=== PATIENT | male | born 1940 | race Caucasian/White ===

== ENCOUNTER 2016-10-04 09:15 | Inpatient (IN) ==
--- NOTE | 2016-09-29 12:56 | XRay Report ---
XR chest 2V Indication: Preop evaluation Comparison: None Technique: Frontal and lateral views of the chest Findings: Borderline cardiomegaly. No focal consolidation or pneumothorax. Small left pleural effusion. Osseous and surrounding soft tissue structures demonstrate no acute abnormality. IMPRESSION: As above. PROCEDURE INTERPRETED AT [facility] DEPARTMENT OF RADIOLOGY Final Report Signed by: Dr Aditya Ramirez
[~2016-10-04 09:15] MED LIST: cefOXitin 1,000 MG in SODIUM CHLORIDE 0.9% 100 ML IV ONE
--- NOTE | 2016-10-04 09:39 | EKG Report ---
Stationary ECG Study [facility] Test Date: 10/04/2016 9:37:28 AM Pat Name: ALIZE MELCHOR Department: Room: 614 Gender: M Case Management Assistant: BARON : 1940 Requested by: Dewayne Stevenson Order Number: [id number] Reading MD: AIDEE ACUNA Intervals [place] Rate: 65 P: 82 WY: 154 QRS: -5 QRSD: 90 T: 4 QT: 414 QTc: 425 Interpretive Statements SINUS RHYTHM NONSPECIFIC T-WAVE ABNORMALITY Electronically Signed On 10-06-16 09:13:17 DEMO COORDINATOR by AIDEE ACUNA [id number]
[2016-10-04 09:59] LABS: Hematocrit 23.7 VOL% (42.0-52.0); Hemoglobin 7.1 GM/DL (14.0-18.0)
[2016-10-04] MEDS ORDERED: LIDOCAINE 1%/EPI INJ 20 ML VIAL ONE (10:23)
[2016-10-04] MEDS ORDERED: BUPIVACAINE MPF 0.25% /EPI 30 ML VIAL ONE (10:23)
[2016-10-04] MEDS: SODIUM CHLORIDE 0.9% 1,000 ML IV SCH ×2 (11:12→16:20)
[2016-10-04] MEDS ORDERED: LABETALOL 100 MG/20 ML VIAL IV ONE (12:50)
[2016-10-04] MEDS ORDERED: ROCURONIUM 100 MG/10 ML VIAL IV ONE (12:50)
[2016-10-04] MEDS ORDERED: LIDOCAINE 2% 5 ML VIAL ONE (12:50)
[2016-10-04] MEDS ORDERED: ETOMIDATE 20 MG/10 ML VIAL IV ONE (12:50)
--- NOTE | 2016-10-04 12:55 | History and Physical Update ---
History and Physical Update - History and Physical H&P was reviewed, the patient examined and there: are no changes in the patients condition since last H&P was completed.
[2016-10-04 14:46] LABS: Apearance,Urine CLEAR (Clear); Bilirubin,Urine Negative (Negative); Blood, Urine Negative (Negative); Glucose,Urine (UA) Negative (Negative); Ketones,Urine Negative (Negative); Mucus,Urine Occasional /LPF (Occasional); Nitrite,Urine Negative (Negative); Protein,Urine Negative; RBC,Urine <1 /HPF (0-4); Squamous Epithelial Cell,Urine Occasional /HPF (0-10); Urine Color Straw (Yellow); Urine Specific Gravity 1.005 (1.001-1.035); Urine Urobilinogen < 2.0 EU/DL (0.2-1.0); WBC,Urine <1 /HPF (0-6)
[2016-10-04] MEDS ORDERED: ONDANSETRON 4 MG/2 ML VIAL IV PRN (14:53)
[2016-10-04] MEDS ORDERED: DEXTROSE 50% 25 GM/50 ML VIAL IV PRN (14:58)
[2016-10-04] MEDS ORDERED: GLUCAGON 1 MG VIAL IM PRN (14:58)
[2016-10-04] MEDS ORDERED: DEXTROSE 5% NACL 0.45% 1,000 ML IV SCH (15:00)
--- NOTE | 2016-10-04 15:03 | Operative Note ---
Date of procedure: 10/04/16 Pre-op diagnosis: colon cancer ascending colon Post-op diagnosis: same Procedure: Laparoscopic hand-assisted right hemicolectomy with stapled anastomosis Findings and technique: After informed consent was obtained the patient was brought the operating room and placed in spine position. After successful induction with general anesthesia patient's abdomen was prepped and draped in usual sterile fashion. Local anesthesia was infiltrated and a small incision made at the umbilicus where an open technique was used to enter the peritoneal cavity. A GelPort was inserted and a pneumoperitoneum was established through this with the port placed through the GelPort. Camera was inserted and exploration of the abdomen revealed no evidence of metastatic disease but did reveal adhesions between the descending colon and the anterior abdominal wall in the right mid abdomen. A 5 mm port was placed in the upper abdomen and a finder beat Harmonic dissector was used to divide peritoneal attachments between the ascending colon and the anterior abdominal wall taking down these adhesions. This did not appear to clearly represent malignant effusions. With a hand introduced and was able to retract the colon medially and incised the peritoneal reflections laterally completely mobilizing the descending colon and identifying the right ureter. Hepatic flexure was mobilized as well as the proximal transverse colon to the middle colic vessels. I next was able to deliver the bowel into the GelPort and divided the terminal ileum extracorporeally with a TABITHA stapling device and also divided the proximal transverse colon just at the middle colic vessels with a TABITHA stapling device. A generous lymph node dissection was included in the mesenteric resection down to the origin of the right colic artery. Right colic artery was controlled with silk ties and a suture ligature. The mesentery was divided between clamps and ties and the specimen removed. This was inspected by pathology and it was felt that margins were clear. The stapled ends of bowel appeared to be well- perfused and a stapled anastomosis performed with a TABITHA stapling device and a TA stapler closed the openings in the ends of the bowel. This was reinforced with several interrupted silk Lembert sutures and the anastomosis coated with Tisseel tissue sealant. The mesenteric defect was closed interrupted silk suture and the bowel returned to its normal position. Good hemostasis was noted and there was minimal blood loss throughout the procedure. The midline fascial defect was closed with a running 0 PDS suture incorporating a small umbilical hernia within the closure. Skin was irrigated and closed with skin clips. She appeared to tolerate the procedure well and had no apparent complications. Anesthesia: GETA, local Surgeon / Physician: Dewayne Stevenson III. Estimated blood loss: other (50 mL) Specimens: other (right colon) Condition: stable Disposition: PACU Results - Labs CBC & BMP: 10/04/16 09:43 10/04/16 09:43 Discharge Plan - Discharge Medications No Action Aspirin EC Tab 81 mg PO DAILY Simvastatin 80 mg PO BEDTIME Loratadine 10 mg PO DAILY Hydralazine HCl 25 mg PO DAILY Furosemide 40 mg PO DAILY Ferrous Sulfate 325 mg PO BID Glimepiride [Amaryl] 4 mg PO BID W/MEALS Cholecalciferol [Vitamin D3] 1,000 unit PO DAILY Polyethylene Glycol Powder [Miralax] 17 gm PO BID Insulin Detemir [Levemir FlexPen] 13 unit SUBCUT DAILY Pantoprazole Sodium [Protonix] 40 mg PO DAILY - Follow Up or Referral - Forms/Instructions
[2016-10-04] MEDS ORDERED: MIDAZOLAM 2 MG/2 ML VIAL ONE (15:15)
[2016-10-04] MEDS ORDERED: SEVOFLURANE 1 UNIT/15 MINUTE INH ONE (15:15)
[2016-10-04] MEDS ORDERED: SODIUM CHLORIDE 0.9% 1,000 ML IV ONE (15:15)
[2016-10-04 17:10] LABS: Hematocrit 22.5 VOL% (42.0-52.0); Hemoglobin 6.6 GM/DL (14.0-18.0)
[2016-10-04] MEDS: MORPHINE PCA 30 MG/30 ML SYRINGE IV SCH (17:49)
--- NOTE | 2016-10-04 18:44 | Anesthesia ---
Anesthesia Post OP - Post Ansesthetic Evaluation Patient seen in post op: Yes Resp: within normal limits CV: within normal limits Mental: within normal limits Temp: within normal limits Wcoo-Yz-Ijyuefknw: within normal limits Nausea and Vomiting: within normal limits Pain: within normal limits
[2016-10-04] MEDS: INSULIN REGULAR 100 UNIT/ML SUBCUT SCH (19:21)
[2016-10-04] MEDS: ALVIMOPAN 12 MG CAPSULE PO SCH (22:38)
[2016-10-04] MEDS: ACETAMINOPHEN 325 MG TABLET PO PRN (22:38)
[2016-10-05] MEDS: INSULIN REGULAR 100 UNIT/ML SUBCUT SCH ×4 (00:38→18:58)
[2016-10-05 04:49] LABS: Basophils % 0.1 % (0.0-0.8); Hematocrit 28.5 VOL% (42.0-52.0); Hemoglobin 8.6 GM/DL (14.0-18.0); Immature Granulocytes % 0.5 %; Immature Granulocytes Absolute 0.07 #; Lymphocytes # 0.8 10*3/uL (1.4-4.0); Lymphocytes % 5.8 % (21.2-54.2); Mean Corpuscular HGB Conc 30.2 GM/DL (32-36); Mean Corpuscular Hemoglobin 26 PG (27-34); Mean Corpuscular Volume 86.6 FL (87-102); Mean Platelet Volume 9.9 FL (9.6-12.0); Monocytes # 0.7 10*3/uL (0.11-0.8); Monocytes % 5.2 % (1.7-12.7); Neutrophils # 12.5 10*3/uL (1.4-7.4); Neutrophils % 88.4 % (38.7-73.9); Platelet Count 251 T/CUMM (130-400); Red Blood Count 3.29 MC/CUMM (3.8-5.5); Red Cell Distribution Width 17.1 % (9.3-17.3); White Blood Count 14.1 T/CUMM (4-12)
[2016-10-05 05:21] LABS: Calcium 7.7 MG/DL (8.5-10.1); Osmolality,Calculated 308.4 MOS/KG (273-304); Potassium 5.1 MMOL/L (3.5-5.1)
[2016-10-05 07:16] LABS: Hemoglobin 8.2 GM/DL (14.0-18.0)
--- NOTE | 2016-10-05 07:24 | Physician Query Form ---
CLICK EDIT DOCUMENT TO SELECT QUERY ANSWER --> OK --> SIGN Connie Pope RN, CCDS Certified Clinical Napkin Machine Operator W) [phone] (f) [phone] [email or web address]: Make your selection(s) from the choices in EACH section by typing an "x" and enter comments in the comment section. Please use your independent medical judgment in providing your response. This request does not imply that any particular answer is desired or expected. CLINICAL INDICATORS: (Providers should not edit this section) The medical record indicates that the patient was admitted with colon cancer, had surgery, creatinine of 3.30# and GFR of 20#. [under history unspecified Kidney Disease] Clarify which of the following most accurately represents the patient's renal status: ( ) Acute kidney injury (non-traumatic) ( ) Acute renal failure ( ) Acute renal failure with underlying Chronic Kidney Disease (CKD) - please provide stage below ( ) Acute renal failure with pathological renal lesion ( ) Acute renal failure with necrosis ( ) tubular ( ) medullary ( ) cortical (x ) CKD - please provide stage below ( ) End Stage Renal Disease ( ) Acute interstitial nephritis ( ) Hepatorenal syndrome ( ) Other, please specify: ( ) Clinically unable to determine Chronic Kidney Disease Stages Source: National Kidney Disease Foundation ( ) Stage I (eGFR > or = 90) ( ) Stage II (eGFR 60 - 89) ( ) Stage III (eGFR 30 - 59) (x ) Stage IV (eGFR 15 - 29) ( ) Stage V (eGFR < 15 or dialysis) COMMENTS: Use of terms such as suspected, likely, or probable (associated with a specific diagnosis that is being evaluated, monitored, or treated as if it exists) are acceptable and can be restated in the discharge summary if not ruled out. MTDD
--- NOTE | 2016-10-05 07:25 | Physician Query Form ---
CLICK EDIT DOCUMENT TO SELECT QUERY ANSWER --> OK --> SIGN Connie Pope RN, CCDS Certified Clinical Swimming Teacher W) [phone] (f) [phone] [email or web address] PROVIDERS: Make your selection(s) from the choices in EACH section by typing an "x" and enter comments in the comment section. Please use your independent medical judgment in providing your response. This request does not imply that any particular answer is desired or expected. CLINICAL INDICATORS: (Providers should not edit this section) The medical record indicates that the patient was admitted with colon cancer, had surgery, HH of 7.1/23.7/ HH dropped to 6.6/22.5 and the patient was given two units of blood. Based on the above, could you clarify which of the following conditions you are evaluating, treating, and/or monitoring? ( ) Blood loss anemia ( ) acute ( ) chronic ( ) acute on chronic (x ) Acute blood loss anemia on baseline chronic anemia ( ) Acute blood loss anemia as a complication of a procedure ( ) Iron deficiency anemia not associated with blood loss ( ) Dilutional anemia due to IV fluids ( ) Anemia due to chemotherapy ( ) Anemia due to neoplastic disease ( ) Anemia due to chronic kidney disease ( ) Pernicious anemia ( ) Aplastic anemia ( ) Hemolytic anemia ( ) immune ( ) non-immune - please specify cause: ( ) Anemia due to other condition, please specify: ( ) Clinically unable to determine COMMENTS: Use of terms such as suspected, likely, or probable (associated with a specific diagnosis that is being evaluated, monitored, or treated as if it exists) are acceptable and can be restated in the discharge summary if not ruled out. MTDD
--- NOTE | 2016-10-05 07:27 | Event Note ---
He feels well. He is awake and alert and his pain is controlled. He has stable vital signs and is had some low-grade temperature. His abdomen is benign. His hematocrit is stable. We will push incentive spirometry. I ordered oxygen by nasal cannula postoperatively but this was not done. This is been once again ordered. We will get him up out of bed today and get his Dyer catheter out. I will cut back his IV fluids some.
[2016-10-05] MEDS: PANTOPRAZOLE 40 MG TABLET PO SCH (10:31)
[2016-10-05] MEDS: hydrALAZINE 25 MG TABLET PO SCH (10:31)
[2016-10-05] MEDS: ASPIRIN EC 81 MG TABLET PO SCH (10:31)
[2016-10-05] MEDS: ALVIMOPAN 12 MG CAPSULE PO SCH ×2 (10:31→21:06)
[2016-10-05] MEDS: DEXTROSE 5% NACL 0.45% 1,000 ML IV SCH (10:34)
[2016-10-05] MEDS: SODIUM CHLORIDE 0.9% 1,000 ML IV SCH (12:17)
[2016-10-05] MEDS: MORPHINE PCA 30 MG/30 ML SYRINGE IV SCH (15:30)
[2016-10-05] MEDS: ACETAMINOPHEN 325 MG TABLET PO PRN (21:07)
[2016-10-06] MEDS: INSULIN REGULAR 100 UNIT/ML SUBCUT SCH ×4 (00:15→18:22)
[2016-10-06 07:10] LABS: Basophils % 0.1 % (0.0-0.8); Eosinophils # 0.1 10*3/uL (0.0-0.87); Eosinophils % 1.2 % (0.00-10.9); Hematocrit 29.6 VOL% (42.0-52.0); Hemoglobin 8.9 GM/DL (14.0-18.0); Immature Granulocytes % 0.3 %; Immature Granulocytes Absolute 0.03 #; Lymphocytes # 1.9 10*3/uL (1.4-4.0); Mean Corpuscular HGB Conc 30.1 GM/DL (32-36); Mean Corpuscular Hemoglobin 26 PG (27-34); Mean Corpuscular Volume 86.5 FL (87-102); Mean Platelet Volume 9.3 FL (9.6-12.0); Monocytes # 0.6 10*3/uL (0.11-0.8); Monocytes % 5.9 % (1.7-12.7); Neutrophils # 8.2 10*3/uL (1.4-7.4); Neutrophils % 75.5 % (38.7-73.9); Platelet Count 255 T/CUMM (130-400); Red Blood Count 3.42 MC/CUMM (3.8-5.5); White Blood Count 10.9 T/CUMM (4-12)
[2016-10-06 07:43] LABS: Calcium 8.3 MG/DL (8.5-10.1); Osmolality,Calculated 292.1 MOS/KG (273-304); Potassium 4.9 MMOL/L (3.5-5.1)
[2016-10-06] MEDS: PANTOPRAZOLE 40 MG TABLET PO SCH (08:49)
[2016-10-06] MEDS: hydrALAZINE 25 MG TABLET PO SCH (08:49)
[2016-10-06] MEDS: ALVIMOPAN 12 MG CAPSULE PO SCH ×2 (08:49→21:32)
[2016-10-06] MEDS: ASPIRIN EC 81 MG TABLET PO SCH (08:49)
--- NOTE | 2016-10-06 09:13 | Event Note ---
He feels well. He is tolerating liquids. He has no abdominal pain or nausea or vomiting. He is afebrile with stable vital signs. His abdomen and wound with good. He is getting up out of bed and we will get physical therapy to work with him in anticipation of discharge later this week.
--- NOTE | 2016-10-06 10:43 | Pathology Report from [facility] ---
ACCESSION # : [id number] PATIENT NAME : William Melchor ORDERING DR : DEIDRA FOY III, MD CLINICAL HX: RT colon CA POST-OP DX: Same SPECIMEN INFO: RT colon - check margins GROSS DESCRIPTION: Received fresh labeled "WILLIAM MELCHOR" is a right colon measuring 17.0 x 7.0 cm. The terminal ileum measures 4.5 x 2.0 cm. An appendix is not seen. Opening the colon reveals a large fungating tumor mass measuring 12.0 x 6.5 x 2.3 cm situated 1.5 cm distal to the ileocecal valve and 8.0 cm from the distal margin. Grossly the tumor extends through the bowel wall and into the adjacent mesentery and comes to 5.0 cm of the mesenteric margin. Lymph nodes will be submitted following fixation. Sections submitted A-Proximal margin , B-Distal margin, C-Mesenteric margin, D-F Tumor. Cassetes G and H lymph nodes. (Tuesday10/05/2016) DIAGNOSIS FOR WILLIAM MELCHOR: RIGHT PARTIAL ILEO COLECTOMY (Intact, 17.0 x 7.0 cm) : TYPE: Invasive adenocarcinoma, Mucinous. TUMOR SITE: Cecum TUMOR SIZE: 12.0 x 6.5 cm. MACROSCOPIC TUMOR PERFORATION: Present. HISTOLOGIC GRADE: Moderately - differentiated. MICROSCOPIC TUMOR EXTENSION: Through muscularis propria into surrounding fatty tissue. MARGINS, PROXIMAL: Uninvolved by carcinoma, distance = 6.0 cm. DISTAL: Uninvolved by carcinoma, distance = 8.0 cm. MESENTERIC: Uninvolved by carcinoma, distance = 5.0 cm. TREATMENT EFFECT: No prior treatment. LYMPH VASCULAR INVASION: Absent. PERINEURAL INVASION: Absent. TUMOR DEPOSITS: Present, number of deposits = Multiple. LYMPH NODES: NUMBER EXAMINED: 13. NUMBER INVOLVED: 0. ADDITIONAL FINDINGS: NoneAJCC PATHOLOGIC STAGE IIA ( pT3pN0 ). SERVICE DATE: 10/05/2016 REPORT DATE: 10/06/2016 PATHOLOGIST: Diana Acosta
[2016-10-06] MEDS: MORPHINE PCA 30 MG/30 ML SYRINGE IV SCH ×2 (13:46→15:06)
[2016-10-06] MEDS: DEXTROSE 5% NACL 0.45% 1,000 ML IV SCH (15:08)
[2016-10-07] MEDS: INSULIN REGULAR 100 UNIT/ML SUBCUT SCH ×4 (00:35→18:13)
[2016-10-07] MEDS: DEXTROSE 5% NACL 0.45% 1,000 ML IV SCH ×3 (04:31→17:46)
[2016-10-07] MEDS: hydrALAZINE 25 MG TABLET PO SCH (08:40)
[2016-10-07] MEDS: PANTOPRAZOLE 40 MG TABLET PO SCH (08:40)
[2016-10-07] MEDS: ALVIMOPAN 12 MG CAPSULE PO SCH ×2 (08:40→21:10)
[2016-10-07] MEDS: ASPIRIN EC 81 MG TABLET PO SCH (08:40)
--- NOTE | 2016-10-07 09:17 | Event Note ---
He feels well. He is tolerating a soft diet but is not had a bowel movement. His abdomen is benign. His pathology shows 13 negative lymph nodes with a very large primary. Consult. I anticipate him likely be ready for discharge by tomorrow.
--- NOTE | 2016-10-07 15:44 | Oncology Progress Note ---
Oncology Subjective PN Interval history: Consult for colon cancer. Patient presented with dyspnea on exertion and significant anemia. Now postop day 3 for right sided tumor fairly large and mucinous subtype. Cecal involvement noted. The patient had macroscopic perforation and also multiple tumor deposits. 0 of 13 lymph nodes were examined. In summary this is an early stage tumor but with several high-risk features. Adjuvant chemo was offered assuming the patient desires treatment and is physically able. I will plan to see in office in 3-4 weeks for further evaluation. His was present during our discussion Exam - Constitutional Vitals: Period Temp Pulse Resp BP Sys/Huertas Pulse Ox Last 24 Hr 98.2 F-98.8 F 71-95 17-20 146-170/70-89 93-99 Results - Labs CBC & BMP: 10/06/16 07:03 10/06/16 07:03 Quality Measures - VTE Contraindication to Pharmacological VTE Prophylaxis: High Risk of Bleeding
[2016-10-07] MEDS: MORPHINE PCA 30 MG/30 ML SYRINGE IV SCH (18:13)
[2016-10-08] MEDS: INSULIN REGULAR 100 UNIT/ML SUBCUT SCH ×3 (00:20→11:40)
[2016-10-08] MEDS: DEXTROSE 5% NACL 0.45% 1,000 ML IV SCH ×2 (02:30→06:23)
--- NOTE | 2016-10-08 07:25 | Event Note ---
He looks good. He is tolerating a diet and having bowel movements. His abdomen is benign and his wound looks good. He is afebrile. We will discharge him home with plans to follow-up with me in 1 week and follow-up with oncology in the next 3-4 weeks
[2016-10-08] MEDS: SODIUM CHLORIDE 0.9% 1,000 ML IV SCH ×2 (08:15→11:16)
[2016-10-08] MEDS: ALVIMOPAN 12 MG CAPSULE PO SCH (08:16)
[2016-10-08] MEDS: hydrALAZINE 25 MG TABLET PO SCH (08:47)
[2016-10-08] MEDS: PANTOPRAZOLE 40 MG TABLET PO SCH (08:47)
[2016-10-08] MEDS: ASPIRIN EC 81 MG TABLET PO SCH (08:47)
--- NOTE | 2016-10-08 10:35 | Discharge Summary ---
Hospital Course - Hospital Course Hospital Course: 76 M admitted for colon cancer. Went to [facility] OR on 10/[address] Graham WELLS for a laparoscopric right hemicolectomy with stapled anastomosis. Patient is doing well post-op. He is tolerating a diet, having bowel movements, and pain is controlled. Dr. Sweeney saw patient on consultation. He has an early stage tumor with several high-risk factors. Adjuvant chemo offered. Dr. Sweeney will follow-up in 4 weeks for further evaluation. Follow up with Dr. Graham WELLS in 1 week. Complete discharge instructions given. - Time spent with patient Time with patient DS: Less than 30 minutes Specialty Discharge - Follow Up or Referrals Follow up with: Dewayne Stevenson III., MD [Physician] - 10/14/16 2:30 pm Yasir Sweeney MD [Physician] - 11/02/16 9:10 am (3-4 weeks) Discharge Plan - Discharge Data Disposition: Disch To Home/Self Care Condition at Discharge: Stable Discharge Diet: advance to your usual diet Activity: increase activity as tolerated, no lifting Hygiene: may shower Driving: not until seen by doctor Contact your physician if you experience:: fever over 101, Nausea/Vomiting Wound / Dressing Care Instructions: ok to shower daily w mild soap and water, pat dry. ok to leave open to the air or cover prn w bandaids. - Discharge Medications New HYDROcodone/ACETAMIN 5-325 [[place] 5-325] 1 tablet PO Q6H #20 tablet Continue Aspirin EC Tab 81 mg PO DAILY Simvastatin 80 mg PO BEDTIME Loratadine 10 mg PO DAILY Hydralazine HCl 25 mg PO DAILY Furosemide 40 mg PO DAILY Ferrous Sulfate 325 mg PO BID Glimepiride [Amaryl] 4 mg PO BID W/MEALS Cholecalciferol [Vitamin D3] 1,000 unit PO DAILY Insulin Detemir [Levemir FlexPen] 13 unit SUBCUT DAILY Pantoprazole Sodium [Protonix] 40 mg PO DAILY Discontinued Polyethylene Glycol Powder [Miralax] 17 gm PO BID - Follow Up or Referral Follow Up: Dewayne Stevenson III., MD [Physician] - 10/14/16 2:30 pm Yasir Sweeney MD [Physician] - 11/02/16 9:10 am (3-4 weeks) - Forms/Instructions Instructions: Colectomy (DC) Additional Discharge Instructions: Hold Miralax until after Dr. Graham WELLS appointment. Exam - Constitutional Vitals: Period Temp Pulse Resp BP Sys/Huertas Pulse Ox Last 24 Hr 97.6 F-98.9 F 71-84 17-18 151-163/77-90 94-97 Discharge Results Labs on day of discharge: Labs from last 24 hours 10/08/16 10/07/16 10/07/16 05:31 23:49 17:45 POC Glucose 224 H 244 H 282 H 10/07/16 11:10 POC Glucose 110 H DS: Provider Date of admission: 10/04/16 14:53 Primary care physician: Nusrat Greer Attending physician on admission: Dewayne Stevenson III., Consults: 10/04/16 15:05 Consult to Pharmacy [CONS] Routine Reason for Pharmacy Consult: Adjust Meds Renal Funct 10/07/16 09:22 Consult to Physician [CONS] Routine Comment: Consulting Provider: Yasir Sweeney Consulting Provider Notified: Yes When should Consulting Provider be notified: Now Consult to Specialist Group: Oncology Person Notified: thalia joe Date Notified: 10/07/16 Time Notified: 09:24 Discharging clinician: EASTON Mcmanus Expected date of discharge: 10/08/16
[2016-10-08 12:50] VITALS: BP 156/78
== END 2016-10-08 13:17 | disposition home or self-care (01) | DRG 330 ==
LOC: N.OR 09:15 → N.SDSINP 09:18 → N.3E 14:53
PROVIDERS: ADMIT Surgery; ATTEND Surgery

== ENCOUNTER 2017-09-04 13:12 | Inpatient (IN) ==
[2017-09-04 14:45] LABS: Basophils % 0.2 % (0.0-0.8); Eosinophils % 0.5 % (0.00-10.9); Hematocrit 35.6 VOL% (42.0-52.0); Hemoglobin 11.9 GM/DL (14.0-18.0); Immature Granulocytes % 0.7 %; Immature Granulocytes Absolute 0.06 #; Lymphocytes # 0.5 10*3/uL (1.4-4.0); Mean Corpuscular HGB Conc 33.4 GM/DL (32-36); Mean Corpuscular Hemoglobin 31 PG (27-34); Mean Corpuscular Volume 91.8 FL (87-102); Mean Platelet Volume 10.4 FL (9.6-12.0); Monocytes # 0.2 10*3/uL (0.11-0.8); Monocytes % 2.4 % (1.7-12.7); Neutrophils % 90.2 % (38.7-73.9); Platelet Count 177 T/CUMM (130-400); Red Blood Count 3.88 MC/CUMM (3.8-5.5); Red Cell Distribution Width 12.9 % (9.3-17.3); White Blood Count 8.9 T/CUMM (4-12)
[2017-09-04 14:57] LABS: PT Patient Result 10.4 SECS; Partial Thromboplastin Time 23.8 SECS (0-40)
[2017-09-04 15:05] LABS: Blood Urea Nitrogen 36 MG/DL (7-18); Glucose 266 MG/DL (74-106); Potassium 4.4 MMOL/L (3.5-5.1); Sodium 143 MMOL/L (136-145); Troponin I Only < 0.015 NG/ML (0.00-0.045)
[2017-09-04 15:35] LABS: Apearance,Urine Slightly Cloudy (Clear); Bilirubin,Urine Negative (Negative); Glucose,Urine (UA) 3+ mg/dL (Negative); Ketones,Urine Negative (Negative); Nitrite,Urine Negative (Negative); Protein,Urine 3+ MG/DL; Urine Color Amber (Yellow); Urine Specific Gravity 1.015 (1.001-1.035)
[2017-09-04 15:36] LABS: Blood, Urine Large mg/dL (Negative); RBC,Urine TNTC /HPF (0-4); Urine Urobilinogen < 2.0 EU/DL (0.2-1.0); WBC,Urine 0-5 /HPF (0-6)
[2017-09-04] MEDS ORDERED: ZALEPLON 5 MG CAPSULE PO PRN (16:14)
[2017-09-04] MEDS ORDERED: DEXTROSE 50% 25 GM/50 ML VIAL IV PRN (16:14)
[2017-09-04] MEDS ORDERED: GLUCAGON 1 MG VIAL IM PRN (16:14)
[2017-09-04] MEDS ORDERED: ACETAMINOPHEN 325 MG TABLET PO PRN (16:14)
[2017-09-04] MEDS ORDERED: ONDANSETRON 4 MG/2 ML VIAL IV PRN (16:14)
[2017-09-04] MEDS: INSULIN REGULAR 100 UNIT/ML SUBCUT SCH ×2 (17:27→20:14)
[2017-09-05 04:48] LABS: Basophils % 0.4 % (0.0-0.8); Eosinophils # 0.2 10*3/uL (0.0-0.87); Eosinophils % 1.9 % (0.00-10.9); Hematocrit 32.5 VOL% (42.0-52.0); Immature Granulocytes % 1.2 %; Lymphocytes # 1.9 10*3/uL (1.4-4.0); Lymphocytes % 23.3 % (21.2-54.2); Mean Corpuscular HGB Conc 33.8 GM/DL (32-36); Mean Corpuscular Hemoglobin 30 PG (27-34); Mean Corpuscular Volume 89.8 FL (87-102); Mean Platelet Volume 10.2 FL (9.6-12.0); Monocytes # 0.6 10*3/uL (0.11-0.8); Neutrophils # 5.4 10*3/uL (1.4-7.4); Neutrophils % 66.2 % (38.7-73.9); Platelet Count 189 T/CUMM (130-400); Red Blood Count 3.62 MC/CUMM (3.8-5.5); Red Cell Distribution Width 12.9 % (9.3-17.3); White Blood Count 8.1 T/CUMM (4-12)
[2017-09-05 05:15] LABS: Albumin 3.1 G/DL (3.4-5.0); Bilirubin,Total 0.4 MG/DL (0.2-1.0); Calcium 7.9 MG/DL (8.5-10.1); Osmolality,Calculated 296.7 MOS/KG (273-304); Potassium 3.9 MMOL/L (3.5-5.1); Total Protein 5.3 G/DL (6.4-8.3)
[2017-09-05] MEDS ORDERED: PANTOPRAZOLE 40 MG TABLET PO SCH (09:00)
[2017-09-05] MEDS ORDERED: ALBUTEROL/IPRATROPIUM 3 ML NEB RESP TX PRN (09:36)
[2017-09-05] MEDS ORDERED: LORazepam 1 MG TABLET PO ONE (09:37)
[2017-09-05] MEDS: INSULIN GLARGINE 100 UNIT/ML SUBCUT SCH (10:47)
[2017-09-05] MEDS: INSULIN REGULAR 100 UNIT/ML SUBCUT SCH ×4 (10:58→21:20)
[2017-09-05] MEDS: FERROUS SULFATE 325 MG TABLET PO SCH ×2 (10:58→21:20)
[2017-09-05] MEDS: hydrALAZINE 25 MG TABLET PO SCH (10:58)
[2017-09-05] MEDS: ESCITALOPRAM 10 MG TABLET PO SCH (10:59)
[2017-09-05] MEDS: cefTRIAXone 1,000 MG in SYRINGE 1 EACH IV SCH (13:12)
[2017-09-05] MEDS: FUROSEMIDE 40 MG TABLET PO SCH (13:12)
[2017-09-05] MEDS: AZITHROMYCIN INJ 500 MG in SODIUM CHLORIDE 0.9% 250 ML IV SCH (15:10)
[2017-09-05 16:06] LABS: Apearance,Urine Slightly Hazy (Clear); Bilirubin,Urine Negative (Negative); Blood, Urine Small mg/dL (Negative); Glucose,Urine (UA) >=500 mg/dL (Negative); Ketones,Urine Negative (Negative); Mucus,Urine Occasional /LPF (Occasional); Nitrite,Urine Positive (Negative); Protein,Urine 100 MG/DL; RBC,Urine 1 /HPF (0-4); Squamous Epithelial Cell,Urine Occasional /HPF (0-10); Urine Specific Gravity 1.011 (1.001-1.035); Urine Urobilinogen < 2.0 EU/DL (0.2-1.0); WBC,Urine <1 /HPF (0-6)
[2017-09-05 16:07] LABS: Urine Color Yellow (Yellow)
[2017-09-05] MEDS: SIMVASTATIN 40 MG TABLET PO SCH (21:20)
[2017-09-06 05:41] LABS: Calcium 7.4 MG/DL (8.5-10.1); Osmolality,Calculated 299.8 MOS/KG (273-304); Potassium 4.1 MMOL/L (3.5-5.1)
[2017-09-06] MEDS ORDERED: ASPIRIN EC 81 MG TABLET PO SCH (09:00)
[2017-09-06] MEDS: INSULIN REGULAR 100 UNIT/ML SUBCUT SCH ×4 (09:48→20:41)
[2017-09-06] MEDS: hydrALAZINE 25 MG TABLET PO SCH (09:49)
[2017-09-06] MEDS: FERROUS SULFATE 325 MG TABLET PO SCH ×2 (09:49→20:40)
[2017-09-06] MEDS: PANTOPRAZOLE 40 MG TABLET PO SCH (09:49)
[2017-09-06] MEDS: FUROSEMIDE 40 MG TABLET PO SCH (09:49)
[2017-09-06] MEDS: CHOLECALCIFEROL 1,000 UNIT TABLET PO SCH (09:49)
[2017-09-06] MEDS: LORATADINE 10 MG TABLET PO SCH (09:50)
[2017-09-06] MEDS: INSULIN GLARGINE 100 UNIT/ML SUBCUT SCH (09:50)
[2017-09-06] MEDS: cefTRIAXone 1,000 MG in SYRINGE 1 EACH IV SCH (09:51)
[2017-09-06] MEDS: ESCITALOPRAM 10 MG TABLET PO SCH (09:51)
[2017-09-06] MEDS: AZITHROMYCIN INJ 500 MG in SODIUM CHLORIDE 0.9% 250 ML IV SCH (13:09)
[2017-09-06] MEDS: SIMVASTATIN 40 MG TABLET PO SCH (20:40)
[2017-09-06] MEDS: TAMSULOSIN 0.4 MG CAPSULE PO SCH (20:40)
[2017-09-07 05:43] LABS: Basophils % 0.3 % (0.0-0.8); Eosinophils # 0.2 10*3/uL (0.0-0.87); Eosinophils % 2.9 % (0.00-10.9); Hematocrit 32.4 VOL% (42.0-52.0); Hemoglobin 11.2 GM/DL (14.0-18.0); Immature Granulocytes % 0.4 %; Immature Granulocytes Absolute 0.03 #; Lymphocytes % 27.7 % (21.2-54.2); Mean Corpuscular HGB Conc 34.6 GM/DL (32-36); Mean Corpuscular Hemoglobin 31 PG (27-34); Mean Platelet Volume 10.6 FL (9.6-12.0); Monocytes # 0.6 10*3/uL (0.11-0.8); Neutrophils # 4.4 10*3/uL (1.4-7.4); Neutrophils % 60.7 % (38.7-73.9); Platelet Count 161 T/CUMM (130-400); Red Blood Count 3.64 MC/CUMM (3.8-5.5); Red Cell Distribution Width 12.7 % (9.3-17.3); White Blood Count 7.2 T/CUMM (4-12)
[2017-09-07 06:15] LABS: Calcium 7.7 MG/DL (8.5-10.1); Osmolality,Calculated 293.8 MOS/KG (273-304); Potassium 3.9 MMOL/L (3.5-5.1)
[2017-09-07] MEDS: INSULIN REGULAR 100 UNIT/ML SUBCUT SCH ×4 (08:00→21:28)
[2017-09-07] MEDS: FERROUS SULFATE 325 MG TABLET PO SCH ×2 (09:00→21:27)
[2017-09-07] MEDS: ESCITALOPRAM 10 MG TABLET PO SCH (09:00)
[2017-09-07] MEDS: PANTOPRAZOLE 40 MG TABLET PO SCH (09:00)
[2017-09-07] MEDS: LORATADINE 10 MG TABLET PO SCH (09:00)
[2017-09-07] MEDS: hydrALAZINE 25 MG TABLET PO SCH (09:00)
[2017-09-07] MEDS: CHOLECALCIFEROL 1,000 UNIT TABLET PO SCH (09:00)
[2017-09-07] MEDS: FUROSEMIDE 40 MG TABLET PO SCH (09:00)
[2017-09-07] MEDS: INSULIN GLARGINE 100 UNIT/ML SUBCUT SCH (09:01)
[2017-09-07] MEDS: cefTRIAXone 1,000 MG in SYRINGE 1 EACH IV SCH (09:06)
[2017-09-07] MEDS: AZITHROMYCIN INJ 500 MG in SODIUM CHLORIDE 0.9% 250 ML IV SCH (12:10)
[2017-09-07] MEDS: SIMVASTATIN 40 MG TABLET PO SCH (21:27)
[2017-09-07] MEDS: TAMSULOSIN 0.4 MG CAPSULE PO SCH (21:27)
[2017-09-08] MEDS: CHOLECALCIFEROL 1,000 UNIT TABLET PO SCH (09:14)
[2017-09-08] MEDS: FUROSEMIDE 40 MG TABLET PO SCH (09:14)
[2017-09-08] MEDS: FERROUS SULFATE 325 MG TABLET PO SCH ×2 (09:14→21:44)
[2017-09-08] MEDS: INSULIN GLARGINE 100 UNIT/ML SUBCUT SCH (09:14)
[2017-09-08] MEDS: ESCITALOPRAM 10 MG TABLET PO SCH (09:15)
[2017-09-08] MEDS: LORATADINE 10 MG TABLET PO SCH (09:15)
[2017-09-08] MEDS: hydrALAZINE 25 MG TABLET PO SCH (09:15)
[2017-09-08] MEDS: PANTOPRAZOLE 40 MG TABLET PO SCH (09:15)
[2017-09-08] MEDS: cefTRIAXone 1,000 MG in SYRINGE 1 EACH IV SCH (09:19)
[2017-09-08] MEDS: INSULIN REGULAR 100 UNIT/ML SUBCUT SCH ×4 (09:26→22:26)
[2017-09-08] MEDS: AZITHROMYCIN INJ 500 MG in SODIUM CHLORIDE 0.9% 250 ML IV SCH (11:08)
[2017-09-08] MEDS ORDERED: diphenhydrAMINE CAP 25 MG CAPSULE PO PRN (11:38)
[2017-09-08] MEDS ORDERED: DONEPEZIL 5 MG TABLET PO SCH (21:00)
[2017-09-08] MEDS: TAMSULOSIN 0.4 MG CAPSULE PO SCH (21:44)
[2017-09-08] MEDS: SIMVASTATIN 40 MG TABLET PO SCH (21:44)
[2017-09-09] MEDS: INSULIN GLARGINE 100 UNIT/ML SUBCUT SCH (08:42)
[2017-09-09] MEDS: FERROUS SULFATE 325 MG TABLET PO SCH (08:43)
[2017-09-09] MEDS: hydrALAZINE 25 MG TABLET PO SCH (08:43)
[2017-09-09] MEDS: LORATADINE 10 MG TABLET PO SCH (08:43)
[2017-09-09] MEDS: INSULIN REGULAR 100 UNIT/ML SUBCUT SCH (08:43)
[2017-09-09] MEDS: PANTOPRAZOLE 40 MG TABLET PO SCH (08:43)
[2017-09-09] MEDS: FUROSEMIDE 40 MG TABLET PO SCH (08:43)
[2017-09-09] MEDS: ESCITALOPRAM 10 MG TABLET PO SCH (08:43)
[2017-09-09] MEDS: CHOLECALCIFEROL 1,000 UNIT TABLET PO SCH (08:44)
[2017-09-09] MEDS: cefTRIAXone 1,000 MG in SYRINGE 1 EACH IV SCH (09:07)
[2017-09-09 12:04] VITALS: BP 143/70
== END 2017-09-09 15:16 | disposition home health service (06) | DRG 312 ==
LOC: EDUNIT# → EDBD → N.ED 13:12 → SUATTDRO 15:48 → N.EDINP 15:48 → N.TELES 16:30
PROVIDERS: ADMIT Internal Medicine; ATTEND Internal Medicine